=== PATIENT | male | born 1970 | race Caucasian/White ===

== ENCOUNTER → 2021-03-24 10:13 | Outpatient (CLI) | payer OTHER, SELFPAY ==
--- NOTE | 2021-03-24 10:24 | XR_ITS ---
PROCEDURE: XR LUMBAR SPINE MIN 4V CLINICAL INDICATION: LOW BACK PAIN COMPARISON: No exams were available for comparison FINDINGS: Minimal lumbar scoliosis convex left. No fracture or dislocation. No lytic or blastic change. Unremarkable SI joints. Degenerative disc disease is present from L1-S1 most prominent at L3-L4. Small anterior osteophytes are present at L3-L4. Other findings:None. IMPRESSION: Lumbar spondylosis with scoliosis as described above. Dictated by: Clyde Nieves MD 03/24/2021 16:01 Clyde Nieves MD in [facility] 03/24/2021 16:01
== END ==
PROVIDERS: PCP Internal Medicine Adolescent Medicine; Visit Provider Internal Medicine Adolescent Medicine
DX: M54.50 Low back pain, unspecified (principal)
CPT/HCPCS: 72110

== ENCOUNTER 2021-05-06 08:00 | Outpatient (RCR) | payer OTHER, SELFPAY ==
--- NOTE | 2021-04-01 09:39 | HMH.PTOPEV ---
PT Outpatient Evaluation Rehab PT Outpatient Evaluation Start: 04/01/21 08:02 Freq: Status: Active Protocol: Document 04/01/21 08:02 RALU (Rec: 04/01/21 09:39 RAUL [id number]) Electronically Signed By Genaro Calvert, PT 04/01/21 08:02 Outpatient Therapy Subjective History Subjective History Pt. is a 51 year old male who presents to Outpatient Physical Therapy w/ c/o subacute on chronic and constant LB/BLE(R>L) P!, weakness, and ADL/occupational limitations of traumatic onset a few weeks ago after lifting and throwing concrete bags into his truck. However, pt. reports symptoms first originated a year and a half ago insidiously, but states symptoms worsened after the concrete bag incident a few weeks ago. Pt. reports symptoms worsen w/ prolonged sitting, sleeping, and getting up in the mornings. Pt. reports having some symptom relief w/ prescribed medication, ice, and heat. Pt. reports having constant symptoms into the RLE thigh, but will also refer inferiorly to his foot at times. Pt. reports constant symptoms into the LLE buttock, but refers less inferiorly into the extremity compared to the RLE. Pt. reports having some symptom relief w/ adjustments at the Chiropractor, but states symptoms returning after a couple weeks. Pt. also reports having some symptom relief w/ current stretches. Recent diagnostic imaging( radiograph) positive for lumbar DDD and scoliosis per pt. report. Pt. denies having injections for current pathology. Pt. also denies history of pacemaker, cancer( self), bowel/bladder
== END 2021-06-15 15:17 | disposition home or self-care (01) ==
LOC: PT.CARL 08:00
PROVIDERS: PCP Internal Medicine Adolescent Medicine; Visit Provider Internal Medicine Adolescent Medicine
DX: M54.41 Lumbago with sciatica, right side (principal)
CPT/HCPCS: 97010; 97012; 97014; 97110; 97140; 97163; G0283

== ENCOUNTER 2022-03-30 11:58 | Day surgery (SDC) | payer OTHER, SELFPAY ==
[2022-03-11 14:18] VITALS: BMI 34.3
[2022-03-30] VITALS (7 sets, daily range): BP systolic 88–120; BP diastolic 59–84; PULSE 61–91; RESP 16–18; TEMP 36.2–36.4; O2SAT 93–99
--- NOTE | 2022-03-30 13:29 | EXP.ANES.CKL ---
[facility] Disclaimer: The information contained in this section may have been updated after the patient was seen, as this information can be updated by other users. Medical History History of back problems History of kidney stones Hx of Ocampo's palsy Hx of otitis media Hx of sciatica Surgical History History of carpal tunnel surgery of left wrist Hx of elbow surgery Hx of tonsillectomy Hx of vasectomy Family History Other Family history of cancer Family history of hypertension Family history of stroke Social History Smoking Status: Never smoker alcohol intake: never substance use type: denies use current occupational status: employed Travel in the last 8 weeks: None adopted: No caregiver/support person: No foster care: No household members: spouse housing: house lives independently: Yes marital status: special ras needs: No agree to transfusion: No do you feel safe at home: Yes victim of physical abuse: No victim of emotional abuse: No victim of sexual abuse: No would you like helpful sources: No [facility] Anesthesia Checklist Patient Identification Patient Identification: Arm Band and Verbal (Name & ) Structural Data Admitted From: Home Planned Operative Procedure/s: Colonoscopy Consent for Planned Operative Procedure(s) Verified: Yes NPO Status Verified Time NPO: 00:00 Airway Assessment C-Spine Mobility Assessed: Yes TMJ Mobility Assessed: Yes Dentition: Good Dentition Neurological Assessment Level of Consciousness: Awake Hx Seizures: No Numbness or tingling in extremities: No Anesthesia Plan Anesthesia Risk discussed: Yes Anesthesia Plan: Verified ASA Class: II Anesthesia Type: MAC
--- NOTE | 2022-03-30 13:56 | HMH.SCOPE ---
Procedure: Date: 03/30/22 Patient Date of :: 1970 Procedure Performed:: Colonoscopy Indications:: Screening colonoscopy Performing Provider:: Sid Andrews MD Referring Provider:: Crispin Ochoa MD Sedation:: See RN notes Procedure:: After placing the patient in the left lateral decubitus position, the colonoscopy was gently inserted into the rectum and under direct visualization advanced to the cecum which was identified by transillumination in the right lower quadrant, identification of the ileocecal valve, appendiceal orifice, and cecal strap. Color, texture, mucosa, and anatomy of the colon were carefully examined with the scope. Findings:: Anal canal: normal Rectum: Internal hemorrhoids Sigmoid colon: normal without polyps or inflammatory changes. Fair preparation Descending colon: normal without polyps or inflammatory changes. Fair preparation Splenic flexure: normal Transverse colon: normal without polyps or inflammatory changes Hepatic flexure: normal Ascending colon: normal without polyps or inflammatory changes Cecum: Two polyps less than 5 mm in size. Removed with cold forceps and cold snare polypectomy. Terminal ileum: not visualized Impression: Polyps of cecum Recommendations:: Await pathology results Repeat colonoscopy in 5 years Complications:: None Estimated blood obtained (mL): 0
== END 2022-03-30 14:56 | disposition home or self-care (01) ==
PROVIDERS: PCP Internal Medicine Adolescent Medicine; Visit Provider Internal Medicine
PROC: 0DJD8ZZ Inspection of Lower Intestinal Tract, Via Natural or Artificial Opening Endoscopic (ICD-10-PCS; CPT 45378; principal; 2022-03-30 13:00)
DX: Z12.11 Encounter for screening for malignant neoplasm of colon (principal); D12.0 Benign neoplasm of cecum; K64.8 Other hemorrhoids
CPT/HCPCS: 45385; J2704